=== PATIENT | female | born 1985 | race Caucasian/White ===

== ENCOUNTER 2018-04-09 07:15 | Inpatient (IN) | payer OTHER ==
[2018-04-09] MEDS ORDERED: METHYLERGONOVINE 0.2 MG INJ IM ×2 (08:00→13:00)
[2018-04-09] MEDS ORDERED: MISOPROSTOL 200 MCG TAB PR ×2 (08:00→13:00)
[2018-04-09] MEDS ORDERED: CARBOPROST 250 MCG INJ IM ×2 (08:00→13:00)
[2018-04-09] MEDS ORDERED: OXYTOCIN 30 UNITS/LR 500 ML IV ×4 (08:00→13:00)
[2018-04-09] MEDS ORDERED: CEFAZOLIN 2 GM/50 ML (PMX) 50 ML IVPB (08:00)
[2018-04-09 08:24] LABS: ADD MAN DIFF? NO
[2018-04-09 08:26] LABS: BASOPHILS % 0.2 % (0.0-2.0); EOSINOPHILS # 0.1 10^3/ul (0.0-0.5); HEMATOCRIT 32.8 % (37.0-47.0); HEMOGLOBIN 11.3 g/dl (12.0-16.0); LYMPHOCYTES # 1.8 10^3/ul (0.8-2.9); LYMPHOCYTES % 20.4 % (15.0-51.0); MEAN CORPUSCULAR HEMOGLOBIN 32.1 pg (29.0-33.0); MEAN CORPUSCULAR HGB CONC 34.5 g/dl (32.0-37.0); MEAN CORPUSCULAR VOLUME 93.2 fl (82.0-101.0); MEAN PLATELET VOLUME 10.2 fl (7.4-10.4); MONOCYTE # 0.5 10^3/ul (0.3-0.9); MONOCYTES % 5.4 % (0.0-11.0); NEUTROPHIL # 6.5 10^3/ul (1.6-7.5); NEUTROPHILS % 72.7 % (39.0-77.0); PLATELET COUNT 184 10^3/UL (140-415); RED BLOOD COUNT 3.52 10^6/ul (4.20-5.40); RED CELL DISTRIBUTION WIDTH 13.7 % (11.5-14.5)
[2018-04-09 08:45] LABS: INR 0.84; PROTIME 11.6 Sec (11.9-14.9); PT RATIO 0.9
[2018-04-09 08:46] LABS: PARTIAL THROMBOPLASTIN TIME 28.4 Sec (23.0-35.0)
[2018-04-09] MEDS: LACTATED RINGER'S 1,000 ML IV (09:22)
[2018-04-09] MEDS ORDERED: CITRIC ACID/NA CITRATE 30 ML CUP (09:37)
[2018-04-09] MEDS: CITRIC ACID/NA CITRATE 30 ML CUP PO (09:45)
[2018-04-09] MEDS ORDERED: ONDANSETRON 4 MG INJ (11:32)
[2018-04-09] MEDS ORDERED: morphine SULFATE/PF (10 MG/10 ML) INJ (11:32)
[2018-04-09] MEDS ORDERED: PHENYLephrine (100 MCG/ML) 5ML SYG (11:42)
[2018-04-09] MEDS ORDERED: KETOROLAC 30 MG INJ (11:43)
[2018-04-09] MEDS ORDERED: METOCLOPRAMIDE 10 MG INJ (11:43)
[2018-04-09] MEDS ORDERED: EPHEDrine 25 MG/5 ML SYG (12:10)
[2018-04-09] MEDS ORDERED: LACTATED RINGER'S 1,000 ML IV (12:46)
[2018-04-09] MEDS ORDERED: METHYLERGONOVINE 0.2 MG TAB PO (13:00)
[2018-04-09] MEDS ORDERED: KETOROLAC 30 MG INJ IV (13:30)
[2018-04-09] MEDS ORDERED: DIPHENHYDRAMINE 50 MG INJ IV (13:30)
[2018-04-09] MEDS ORDERED: NALOXONE (0.4 MG/ML) INJ IV (13:30)
[2018-04-09] MEDS ORDERED: morphine 4 MG/ML VIAL IV ×3 (13:30)
[2018-04-09] MEDS ORDERED: ONDANSETRON 4 MG INJ IV ×2 (13:30)
[2018-04-09] MEDS ORDERED: morphine (1 MG/ML) 10ML SYRINGE IV ×3 (13:30)
[2018-04-09] MEDS: LANOLIN HPA 1 PKT TOP (17:01)
[2018-04-09] MEDS: OXYTOCIN 30 UNITS/LR 500 ML IV (17:04)
[2018-04-09] MEDS: DIPHENHYDRAMINE 50 MG INJ IV (18:08)
[2018-04-09 19:41] LABS: RAPID PLASMA REAGIN NONREACTIVE (NR)
[2018-04-09] MEDS: SENNA/DOCUSATE NA (8.6MG/50MG) TAB PO (21:00)
[2018-04-10] MEDS: KETOROLAC 30 MG INJ IV ×2 (02:36→10:30)
[2018-04-10] MEDS: LACTATED RINGER'S 1,000 ML IV ×2 (02:37→07:44)
[2018-04-10 07:17] LABS: ADD MAN DIFF? NO
[2018-04-10 07:20] LABS: BASOPHILS % 0.3 % (0.0-2.0); EOSINOPHILS # 0.1 10^3/ul (0.0-0.5); HEMATOCRIT 28.4 % (37.0-47.0); HEMOGLOBIN 9.6 g/dl (12.0-16.0); LYMPHOCYTES # 1.6 10^3/ul (0.8-2.9); LYMPHOCYTES % 17.7 % (15.0-51.0); MEAN CORPUSCULAR HGB CONC 33.8 g/dl (32.0-37.0); MEAN CORPUSCULAR VOLUME 94.7 fl (82.0-101.0); MEAN PLATELET VOLUME 10.3 fl (7.4-10.4); MONOCYTE # 0.5 10^3/ul (0.3-0.9); MONOCYTES % 5.1 % (0.0-11.0); NEUTROPHIL # 6.7 10^3/ul (1.6-7.5); NEUTROPHILS % 75.7 % (39.0-77.0); PLATELET COUNT 213 10^3/UL (140-415); RED CELL DISTRIBUTION WIDTH 14.2 % (11.5-14.5)
[2018-04-10 07:20] LABS: WHITE BLOOD COUNT 8.9 10^3/ul (4.8-10.8)
[2018-04-10 07:48] LABS: BLOOD UREA NITROGEN 4 mg/dl (7-20); CALCIUM 8.8 mg/dl (8.4-10.2); CARBON DIOXIDE 25 mmol/L (21-31); CHLORIDE 104 mmol/L (97-110); CREATININE 0.52 mg/dl (0.44-1.00); Estimated GFR > 60 mL/min (>60); GLUCOSE 86 mg/dl (70-220); POTASSIUM 3.9 mmol/L (3.5-5.1)
[2018-04-10 08:25] LABS: ANION GAP 7 (5-13); SODIUM 136 mmol/L (135-144)
[2018-04-10] MEDS: SENNA/DOCUSATE NA (8.6MG/50MG) TAB PO ×2 (09:31→22:08)
[2018-04-10] MEDS: IBUPROFEN 800 MG TAB PO (16:42)
[2018-04-10] MEDS: HYDROCODONE/APAP (5/325) TAB PO (22:09)
[2018-04-11] MEDS: IBUPROFEN 800 MG TAB PO ×3 (02:41→21:50)
[2018-04-11] MEDS: SENNA/DOCUSATE NA (8.6MG/50MG) TAB PO ×2 (08:41→21:49)
[2018-04-11] MEDS: HYDROCODONE/APAP (5/325) TAB PO ×2 (10:00→17:31)
[2018-04-12] MEDS: HYDROCODONE/APAP (5/325) TAB PO (00:19)
[2018-04-12] MEDS: IBUPROFEN 800 MG TAB PO (07:46)
[2018-04-12] MEDS: LANOLIN HPA 1 PKT TOP (08:43)
[2018-04-12] MEDS: SENNA/DOCUSATE NA (8.6MG/50MG) TAB PO (08:43)
[2018-04-12] MEDS: MEASLES,MUMPS,RUBELLA VACCINE INJ SC* (08:44)
[2018-04-12] MEDS: DIPHTH/TET/ACEL PERTUSS (ADULT) 0.5 ML VIAL IM* (10:46)
== END 2018-04-12 14:40 | disposition home or self-care (01) | DRG 788 ==
LOC: L-D 07:15 → PP1 14:37
PROVIDERS: Obstetrics & Gynecology
PROC: 10D00Z1 Extraction of Products of Conception, Low, Open Approach (ICD-10-PCS; principal; 2018-04-09 10:30)
DX: O34.211 Maternal care for low transverse scar from previous cesarean delivery (principal); Z3A.39 39 weeks gestation of pregnancy; Z37.0 Single live birth
CPT/HCPCS: 80048; 85025; 85610; 85730; 86592; 86850; 86900; 86901; 99464